=== PATIENT | female | born 1980 | race American Indian/Alaskan Native ===

== ENCOUNTER 2021-08-22 20:16 | Emergency (ER) | payer MEDICAID ==
[2021-08-22] MEDS ORDERED: IBUPROFEN 600 MG TAB PO ONE (23:28)
[2021-08-22] MEDS ORDERED: ACETAMINOPHEN 500 MG TAB PO ONE (23:28)
[2021-08-22 23:51] VITALS: BP 138/79
--- NOTE | 2021-08-23 01:15 | Vascular Lab Report ---
DUPLEX DOPPLER LOWER EXTREMITY VEINS, RIGHT INDICATION / CLINICAL INFORMATION: right leg pain. TECHNIQUE: Duplex doppler imaging was performed through the veins of the right lower extremity using venous compression and other maneuvers. COMPARISON: None available. FINDINGS: RIGHT COMMON FEMORAL VEIN: Negative. RIGHT FEMORAL VEIN: Negative. RIGHT POPLITEAL VEIN: Negative. RIGHT CALF VEINS: Negative. ADDITIONAL FINDINGS: None. IMPRESSION: 1. No sonographic evidence for DVT in the right lower extremity. Signer Name: Carlos Sandoval DO Signed: 08/23/2021 1:10 AM Workstation Name: [id number]
--- NOTE | 2021-08-23 01:49 | Emergency Department Report ---
ED Lower Extremity HPI - General Chief Complaint: Extremity Injury, Lower Stated Complaint: RIGHT LEG NUMBNESS Source: patient Mode of arrival: Ambulatory Limitations: No Limitations - History of Present Illness Initial Comments: Patient is a 41-year-old -[place] female with no past medical history who presents to the ED with complaint of acute onset persistent diffuse right leg pain after performing strenuous physical exercises and falling about 5 days ago. Patient states that she has been taking [id number] medications with no relief. Patient states that any ambulation or weightbearing on the right leg worsens the pain. Patient denies chest pain, shortness of breath, fever, chills, nausea and vomiting, dizziness, syncope, back pain, hip pain or nausea and vomiting, numbness and tingling or weakness of lower extremities bilaterally. MD Complaint: thigh injury (right thigh pain), leg injury (Diffuse right leg pain), fall -: Sudden, days(s) (5) Injury: Thigh: Right (pain), Leg: Right (pain) Type of Injury: other (fall) Place: home Severity: severe Severity scale (0 -10): 7 Improves With: nothing Worsens With: weight bearing, movement, palpation Context: fall Associated Symptoms: able to partially bear weight. denies: snap/pop sensation, swelling, numbness, tingling, unable to bear weight, ambulatory - Related Data Previous Rx's Medication Instructions Recorded Last Taken Type Ondansetron [Zofran Odt] 4 mg PO Q8HR #10 tab.rapdis 03/07/15 Unknown Rx Acetaminophen/Codeine [Tylenol #3] 1 tab PO Q6H PRN #15 tab 07/10/15 Unknown Rx Cyclobenzaprine [Flexeril 10 MG 10 mg PO TID PRN #15 tablet 07/10/15 Unknown Rx TAB] Fluticasone [Flonase] 1 spray NS QDAY #1 bottle 07/10/15 Unknown Rx Loratadine (Nf) [Claritin] 10 mg PO DAILY #30 tablet 07/10/15 Unknown Rx cephALEXin [Keflex] 500 mg PO Q12HR #14 cap 03/05/16 Unknown Rx Ibuprofen [Motrin] 800 mg PO Q8HR PRN #30 tablet 08/23/21 Unknown Rx methOCARBAMOL [Robaxin TAB] 750 mg PO Q8H PRN #30 tab 08/23/21 Unknown Rx Allergies Allergy/AdvReac Type Severity Reaction Status Date / Time No Known Allergies Allergy Verified 03/07/15 13:10 ED Review of Systems ROS: Stated complaint: RIGHT LEG NUMBNESS Other details as noted in HPI Constitutional: denies: chills, fever Eyes: denies: eye pain, eye discharge, vision change ENT: denies: ear pain, throat pain Respiratory: denies: cough, shortness of breath, wheezing Cardiovascular: denies: chest pain, palpitations Endocrine: no symptoms reported Gastrointestinal: denies: abdominal pain, nausea, diarrhea Genitourinary: denies: urgency, dysuria, discharge Musculoskeletal: arthralgia (right lower leg pain). denies: back pain, joint swelling Skin: denies: rash, lesions Neurological: denies: headache, weakness, paresthesias Psychiatric: denies: anxiety, depression Hematological/Lymphatic: denies: easy bleeding, easy bruising ED Past Medical Hx - Past Medical History Hx Hypertension: No Hx Diabetes: No Hx Deep Vein Thrombosis: No Hx Renal Disease: No Hx Sickle Cell Disease: No Hx Seizures: No Hx Asthma: No Hx HIV: No - Surgical History Additional Surgical History: liposuction, abortions, D&C - Social History Smoking Status: Never Smoker Substance Use Type: None - Medications Home Medications: Home Medications Medication Instructions Recorded Confirmed Last Taken Type Ondansetron [Zofran Odt] 4 mg PO Q8HR #10 tab.rapdis 03/07/15 Unknown Rx Acetaminophen/Codeine [Tylenol #3] 1 tab PO Q6H PRN #15 tab 07/10/15 Unknown Rx Cyclobenzaprine [Flexeril 10 MG 10 mg PO TID PRN #15 tablet 07/10/15 Unknown Rx TAB] Fluticasone [Flonase] 1 spray NS QDAY #1 bottle 07/10/15 Unknown Rx Loratadine (Nf) [Claritin] 10 mg PO DAILY #30 tablet 07/10/15 Unknown Rx cephALEXin [Keflex] 500 mg PO Q12HR #14 cap 03/05/16 Unknown Rx Ibuprofen [Motrin] 800 mg PO Q8HR PRN #30 tablet 08/23/21 Unknown Rx methOCARBAMOL [Robaxin TAB] 750 mg PO Q8H PRN #30 tab 08/23/21 Unknown Rx ED Physical Exam - General Limitations: No Limitations General appearance: alert, in no apparent distress - Head Head exam: Present: atraumatic, normocephalic, normal inspection - Eye Eye exam: Present: normal appearance, PERRL, EOMI Pupils: Present: normal accommodation - ENT ENT exam: Present: normal exam, normal orophraynx, mucous membranes moist, TM's normal bilaterally, normal external ear exam - Neck Neck exam: Present: normal inspection, full ROM. Absent: tenderness - Respiratory Respiratory exam: Present: normal lung sounds bilaterally. Absent: respiratory distress, wheezes, rales, rhonchi, chest wall tenderness, accessory muscle use, decreased breath sounds, prolonged expiratory - Cardiovascular Cardiovascular Exam: Present: regular rate, normal rhythm, normal heart sounds. Absent: systolic murmur, diastolic murmur, rubs, gallop - GI/Abdominal GI/Abdominal exam: Present: soft, normal bowel sounds. Absent: tenderness, guarding, rebound, rigid, hyperactive bowel sounds, hypoactive bowel sounds, organomegaly, mass, bruit - Extremities Exam Extremities exam: Present: normal inspection, full ROM, tenderness (Palpable diffuse right thigh and right lower leg tenderness), normal capillary refill, calf tenderness (Palpable posterior right calf tenderness). Absent: pedal edema, joint swelling - Back Exam Back exam: Present: normal inspection - Neurological Exam Neurological exam: Present: alert, oriented X3, CN II-XII intact, normal gait, reflexes normal - Psychiatric Psychiatric exam: Present: normal affect, normal mood - Skin Skin exam: Present: warm, dry, intact, normal color. Absent: rash ED Course Vital Signs 08/22/21 08/22/21 20:22 23:49 Temperature 98.9 F Pulse Rate 60 60 Respiratory 12 16 Rate Blood Pressure 153/64 Blood Pressure 138/79 [Left] O2 Sat by Pulse 100 Oximetry ED Lower Extremity MDM - Radiology Data Radiology results: report reviewed, image reviewed [facility] [address] [place] [address] Vascular Lab Report Signed Patient: FILIPPO GILLILAND MR#: [id number] : 1980 Acct:[id number] Age/Sex: 41 / F ADM Date: 08/22/21 Loc: ED Attending Dr: Ordering Physician: MILAGROS OVALLE Date of Service: 08/22/21 Procedure(s): VL venous duplex LE RT Accession Number(s): [id number] cc: MILAGROS OVALLE DUPLEX DOPPLER LOWER EXTREMITY VEINS, RIGHT INDICATION / CLINICAL INFORMATION: right leg pain. TECHNIQUE: Duplex doppler imaging was performed through the veins of the right lower extremity using venous compression and other maneuvers. COMPARISON: None available. FINDINGS: RIGHT COMMON FEMORAL VEIN: Negative. RIGHT FEMORAL VEIN: Negative. RIGHT POPLITEAL VEIN: Negative. RIGHT CALF VEINS: Negative. ADDITIONAL FINDINGS: None. IMPRESSION: 1. No sonographic evidence for DVT in the right lower extremity. Signer Name: Carlos Sandoval DO Signed: 08/23/2021 1:10 AM Workstation Name: [id number] Transcribed By: PEDRO Dictated By: CARLOS SANDOVAL DO Electronically Authenticated By: CARLOS SANDOVAL DO Signed Date/Time: 08/23/21109 DD/ 9 TD/TT: - Medical Decision Making This is a 41-year-old -[place] female with no past medical history who presents to the ED with complaint of acute onset persistent diffuse right leg pain after performing strenuous physical exercises and falling about 5 days ago. Patient states that she has been taking [id number] medications with no relief. Patient states that any ambulation or weightbearing on the right leg worsens the pain. In the ED, patient is alert and oriented x3 and is not in any distress. Patient was treated for pain in the ED. Doppler right lower leg ultrasound showed no sonographic evidence of DVT. On reevaluation, patient's pain is well controlled medication. Patient symptoms are likely musculoskeletal following the injuries during strenuous physical exercise. Patient was advised to return to the ED immediately if symptoms get worse, otherwise follow-up with the primary care physician in 7 to 10 days for reevaluation. - Differential Diagnosis Muscle strain; DVT; muscle spasm; leg contusion Critical care attestation.: If time is entered above; I have spent that time in minutes in the direct care of this critically ill patient, excluding procedure time. ED Disposition Clinical Impression: Muscle spasm of right lower extremity Muscle strain of right lower extremity Qualifiers: Encounter type: initial encounter Qualified Code(s): S86.911A - Strain of unspecified muscle(s) and tendon(s) at lower leg level, right leg, initial encounter Disposition: HOME / SELF CARE / HOMELESS Is pt being admited?: No Does the pt Need Aspirin: No Condition: Stable Instructions: Muscle Cramps and Spasms, [id number], Muscle Strain, [id number], Leg Cramps Additional Instructions: The Doppler right lower leg ultrasound showed no sonographic evidence of DVT. Your injuries are likely musculoskeletal due to muscle strain or muscle spasms following the strenuous physical activity. Therefore take medication as needed for pain, drink plenty of fluids and follow-up with your primary care physician in 7 to 10 days for reevaluation. Return to the ED immediately if symptoms get worse. Prescriptions: Ibuprofen [Motrin] 800 mg PO Q8HR PRN #30 tablet PRN Reason: Pain , Severe (7-10) methOCARBAMOL [Robaxin TAB] 750 mg PO Q8H PRN #30 tab PRN Reason: Muscles spasm Referrals: [facility] [Provider Group] - 3-5 Days Forms: Work/School Release Form(ED) Time of Disposition: 01:50 Print Language: ALBANIAN
== END 2021-08-23 02:01 | disposition home or self-care (01) ==
LOC: ED 20:16
DX: S86.911A Strain of unspecified muscle(s) and tendon(s) at lower leg level, right leg, initial encounter (principal); M62.838 Other muscle spasm; W18.39XA Other fall on same level, initial encounter; Y93.89 Activity, other specified; Y92.89 Other specified places as the place of occurrence of the external cause; Y99.8 Other external cause status
CPT/HCPCS: 99283